=== PATIENT | female | born 1945 | race Caucasian/White ===

== ENCOUNTER 2016-07-23 12:47 | Day surgery (SDC) | payer MEDICARE, OTHER ==
[~2016-07-23 12:47] MED LIST: AZOR5TAB4 PO; CALC600T44 PO; COQ1200C3 PO; HYDR12.56 PO; MISC1TAB9 PO; NORC10TA2 PO; RIVA10 PO; TAB-TAB PO; TAMO20TA4 PO; VITA100020 IM; WAL-10TA2 PO; ZOCO40TA PO
[2016-07-23 14:16] VITALS: BP 154/90; PULSE 53; RESP 20; TEMP 98.5; O2SAT 100
[2016-07-23 14:20] VITALS: BP 151/88; PULSE 68; RESP 20; TEMP 98; O2SAT 98
[2016-07-23 14:25] VITALS: BP 148/64; PULSE 68; RESP 20; O2SAT 98
[2016-07-23] MEDS ORDERED: LIDOCAINE HCL 1% PF 30 ML VIAL ONE (15:57)
--- NOTE | 2016-07-23 16:07 | RADRPT ---
EXAM DATE/TIME: 07/23/2016 13:32 [place] COMPARISON: No previous studies available for comparison. INDICATIONS : Right thyroid nodule. MEDICAL HISTORY : Hypercholesterolemia. Hypertension. Gastroesophageal reflux disease. Arthritis. Ovarian cancer. Breas t cancer. Skin cancer. SURGICAL HISTORY : Tonsillectomy. Cholecystectomy. Hysterectomy. ENCOUNTER: Initial ACUITY: 1 day PAIN SCORE: 2/10 LOCATION: Right neck ORGAN: Right thyroid lobe SPECIMENS: Three fine needle aspirate(s) submitted for pathologic evaluation. DEVICE: 22 gauge needle Post procedure scanning reveals no hematoma or other complication. The possibility does exist that the tissue obtained will be non-diagnostic. If the sample is non-cameron gnostic a repeat biopsy or surgical biopsy may need to be performed. TECHNIQUE: 1. Ultrasound guidance for needle biopsy. 2. Needle biopsy. The risks, benefits, and alternatives to ultrasound guided needle biopsy were explained to the patien t in detail including the risk of bleeding and infection. Written and verbal informed consent was ob tained. With the patient on the ultrasound table, images were obtained. Overlying skin was prepped and drape d in the usual sterile fashion and Lidocaine was utilized as a local anesthetic. Under ultrasound guidance 3 aspirates were obtained. The patient tolerated the procedure well and left the ultrasound suite in stable condition. CONCLUSION: Uncomplicated ultrasound guided needle biopsy Ryan Davis MD FACR on July 23, 2016 at 15:51 Board Certified Radiologist. This report was verified electronically.
== END 2016-07-23 14:40 | disposition home or self-care (01) ==
LOC: HRAD 12:47 → HRIP 12:51 → HRAD 14:40
PROVIDERS: ATTEND Family Medicine
DX: E04.1 Nontoxic single thyroid nodule (principal); I10 Essential (primary) hypertension; K21.9 Gastro-esophageal reflux disease without esophagitis; E78.00 Pure hypercholesterolemia, unspecified; Z85.43 Personal history of malignant neoplasm of ovary; Z85.828 Personal history of other malignant neoplasm of skin; Z90.49 Acquired absence of other specified parts of digestive tract
CPT/HCPCS: 10022; 76942; 88172; 88173

== ENCOUNTER → 2016-12-20 | Day surgery (SDC) | payer MEDICARE, OTHER ==
[~2016-12-20] MED LIST changes: +ACETAMINOPHEN 1000 MG/100 ML 100 ML IV ONE; +BUPIVACAINE/EPINEPHRINE 0.25% 50 ML VIAL ONE; +LACTATED RINGER'S 1000 ML INJ 1,000 ML ONE; +LIDOCAINE 2%/EPINEPHrine PF 1:200,000 20ML SDV ONE; +MIDAZOLAM HCL 2 MG/2 ML VIAL ONE; +NEOMYCIN/POLYMYXIN/BACITRACIN OINT 15 GM TUBE ONE; +PROPOFOL 1000 MG/100 ML BTL IV ONE
--- NOTE | 2016-12-20 12:28 | TN ---
cc: JESSICA PIERRE M.D.RIC DATE OF SURGERY 12/20/2016 PREOPERATIVE DIAGNOSIS Basal cell carcinoma left leg. POSTOPERATIVE DIAGNOSIS Basal cell carcinoma left leg. PROCEDURE Wide local excision basal cell carcinoma left leg, 1.5 x 5 cm with two-layered closure. SURGEON Dr. Jessica Pierre. HEALTHCARE RECEPTIONIST Telma Motley, MS3 ANESTHESIA Local 0.25% Marcaine with epinephrine plus sedation. INDICATIONS A pleasant 71-year-old woman who was sent to me in consultation by Dr. Jenkins of Dermatology for evaluation of a left leg basal cell carcinoma. Shave biopsy demonstrated positive peripheral and deep margins. She presented for definitive excision. INTRAOPERATIVE FINDINGS Successful removal of the area of concern, specimen sent to pathology with a short stitch at 12 o'clock, a long stitch at 3 o'clock. Estimated blood loss less than 5 mL. DESCRIPTION OF PROCEDURE IN DETAIL The patient was identified as Li Bower, taken to the operating room and placed in supine position. Following IV sedation by Anesthesia the left leg was prepped and draped in the usual sterile fashion with Betadine. Using a ruler and a marking pen, a proposed elliptical incision was made 1.5 x 5 cm in size. Local anesthetic was infiltrated in the area of concern. Incision was carried out with scalpel. The specimen was removed in its entirety using sharp dissection with a scalpel, marked with a silk suture as discussed above and sent to pathology. The wound was irrigated with saline. Bleeding points were controlled with electrocautery. The skin was fairly tight and was undermined circumferentially with electrocautery. The incision was closed with interrupted 3-0 Vicryl in the dermis and superficial subcutaneous tissue and 4-0 nylon in the skin. Antibiotic ointment, 4x4, Darius and Coban completed the dressing. The patient tolerated the procedure without apparent complication. Sponge, needle and instrument counts were correct at the end of the case. MD NIKKIE Muller/MILES /12:08 PM /12:20 PM
== END | disposition home or self-care (01) ==
LOC: ESDC 09:29
PROVIDERS: ATTEND Surgery Trauma Surgery
DX: C44.719 Basal cell carcinoma of skin of left lower limb, including hip (principal)
CPT/HCPCS: 00400; 11606; 12032; 88305; J0131; J2250; J3010; J7120